=== PATIENT | female | born 1975 | race Asian ===

== ENCOUNTER 2020-05-05 17:49 | Emergency (ER) | payer MEDICAID ==
[~2020-05-05] VITALS: Ht 162.6 cm; Wt 56.7 kg
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
[2020-05-05 17:47] VITALS: BP 158/101
--- NOTE | 2020-05-05 18:20 | NUR ---
ED Nurse Note: PT TAKEN TO CT ON LOBO
--- NOTE | 2020-05-05 18:35 | NUR ---
ED Nurse Note: Pt returned from ct
--- NOTE | 2020-05-05 19:05 | NUR ---
ED Nurse Note: Report received from NICHOLAS Vargas.
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
[2020-05-05 19:57] LABS: BASOPHILS % (AUTO) 0.9 % (0.0-2.0); EOSINOPHILS % (AUTO) 2.5 % (0.0-3.0); HEMATOCRIT 41.6 % (37.0-47.0); HEMOGLOBIN 14.2 G/DL (12.0-16.0); LYMPHOCYTES % (AUTO) 26.7 % (20.0-45.0); MEAN CORPUSCULAR VOLUME 95 FL (80-99); MONOCYTES % (AUTO) 7.6 % (1.0-10.0); NEUTROPHILS % (AUTO) 62.2 % (45.0-75.0); PLATELET COUNT 161 K/UL (150-450); RED BLOOD COUNT 4.37 M/UL (4.20-5.40); WHITE BLOOD COUNT 6.3 K/UL (4.8-10.8)
--- NOTE | 2020-05-05 20:10 | NUR ---
ED Nurse Note: Patient assisted to restroom. She can ambulate with steady gait.
[2020-05-05 20:13] LABS: ANION GAP 7 mmol/L (5-15); BLOOD UREA NITROGEN 9 mg/dL (7-18); CALCIUM 9.1 MG/DL (8.5-10.1); CARBON DIOXIDE 29 MMOL/L (21-32); CHLORIDE 106 MMOL/L (98-107); CREATININE 0.6 MG/DL (0.55-1.30); POTASSIUM 3.6 MMOL/L (3.5-5.1); SODIUM 142 MMOL/L (136-145)
[2020-05-05 20:18] LABS: ALANINE AMINOTRANSFERASE 25 U/L (12-78); ALBUMIN 4.1 G/DL (3.4-5.0); ALBUMIN/GLOBULIN RATIO 1.1 (1.0-2.7); ALKALINE PHOSPHATASE 86 U/L (46-116); ASPARTATE AMINO TRANSFERASE 17 U/L (15-37); BILIRUBIN,TOTAL 0.5 MG/DL (0.2-1.0)
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
[2020-05-05] MEDS ORDERED: IBUPROFEN600 M1 ORAL (20:26)
[2020-05-05] MEDS ORDERED: ROBAXIN-500MG ORAL (20:26)
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
[2020-05-05] MEDS ORDERED: Ketorolac 30mg Inj IV ONE (20:45)
[2020-05-05] MEDS ORDERED: MECLIZINE HCL25 MG ORAL (20:55)
[2020-05-05] MEDS ORDERED: Meclizine 25mg tab ORAL ONE (21:00)
--- NOTE | 2020-05-05 21:00 | NUR ---
ED Nurse Note: Patient given arm sling and placed by sound technician.
[2020-05-05 21:30] VITALS: BP 141/95
--- NOTE | 2020-05-05 21:30 | NUR ---
ER DISCHARGE NOTE: Patient is cleared to be discharged per ERMD, pt is aox4, on room air, with stable vital signs. pt was given dc and prescription instructions, pt was able to verbalize understanding, pt id band and iv site removed without complications. pt is able to ambulate with steady gait. pt took all belongings and accompanied by .
--- NOTE | 2020-05-06 15:26 | Cardiology Report ---
APPROVED REPORT EKG Measurement Heart [id number] <Conclusion> Normal sinus rhythm Normal ECG
--- NOTE | 2020-05-06 16:44 | Diagnostic Imaging Report ---
Indication: Chest pain Technique: XRAY Chest 1v Comparison: None Findings: Low lung volumes with vascular prominence. Heart size within normal limits. No dense consolidation. No pleural effusion or pneumothorax. No acute abnormality appreciated. Impression: Persistent interstitial prominence, likely artifactual related to low lung volumes. Correlate clinically as interstitial edema or pneumonia not excluded. No focal consolidation.
== END 2020-05-05 21:30 | disposition home or self-care (01) ==
LOC: EDBD 17:49 → EMR 18:21
DX: S00.03XA Contusion of scalp, initial encounter (principal); S50.02XA Contusion of left elbow, initial encounter; S46.912A Strain of unspecified muscle, fascia and tendon at shoulder and upper arm level, left arm, initial encounter; Y93.55 Activity, bike riding; Y92.9 Unspecified place or not applicable
CPT/HCPCS: 36415; 70450; 71045; 73030; 73080; 80053; 84484; 85025; 93005; 96374; J1885; Z7502; 99284